=== PATIENT | male | born 1970 | race Two or more races ===

== ENCOUNTER 2024-09-30 12:38 | Emergency (ER) | payer BC, OTHER ==
[~2024-09-30] VITALS: Ht 190.5 cm; Wt 84.0 kg
--- NOTE | 2024-09-30 13:13 | ED.PDOC ---
SOB-HPI HPI Comments 53-year-old male with a history of quadriplegia brought in by caregiver for evaluation of shortness of breath and productive cough for the last 2 months, worse over the past 2 days. Patient's caregiver states he has been seen at urgent care multiple times and been prescribed multiple different antibiotics for respiratory infections, however the symptoms continued to progress. He denies fever, chest pain or edema. He states he quit smoking 2 months ago. He denies any current fever, nausea, vomiting or recent sick contacts. Chief Complaint: Shortness of Breath Time Seen by MD: 12:54 Reviewed notes: Nurses Notes, Medications, Allergies Information Source: Patient, Financial Quantitative Analyst Mode of Arrival: Wheelchair Severity: Moderate Timing: Months Duration: Since onset Context: At Rest PE Risk Factors: None History of: None Prehospital treatment: None Associated Signs and Symptoms: Cough If cough with SOB: Productive Past Medical History PAST MEDICAL HISTORY: Depression, GERD, High Lipids, HTN Past Medical History (Other): Quadriplagia 2 of the Acute Disseminated Encephalomyelitis, Spasticity right greater than left, Ataxic gait w/ scissoring, severe dysarthria, 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, Diverticulitis, DVT of Upper Limb, Exotropia Surgical History: Denies all surgeries Family History Family History: Reviewed,noncontributory to illness, Unknown Social History Smoker: Quit Less Than 1 Year, Cigarettes Alcohol: Denies ETOH Use Drugs: Denies Drug Use Lives In: Home All Other Systems: Reviewed and Negative (Comprehensive systems review obtained and negative except for what is stated in the HPI.) Physical Exam General Appearance: No Apparent Distress HEENT: Other (Moist mucous membranes) Neck: Full Range of Motion, Normal Inspection Respiratory: Decreased Breath Sounds, No Accessory Muscle Use, No Respiratory Distress, Rhonchi Cardiovascular: No Edema, No JVD, Regular Rate/Rhythm Breast Exam: Deferred Gastrointestinal: Non Tender, Soft Genitalia: Deferred Pelvic: Deferred Rectal: Deferred Extremities: Non-tender, No pedal edema Neurologic: Alert (Oriented x3), Normal Affect, Normal Mood, Other (Quadriplegia) Cerebellar Function: NOT DONE Reflexes: NOT DONE Skin: Dry, Normal Color, Warm Lymphatic: NOT DONE Was a procedure done? Was a procedure done?: No Differential Dx Differential Diagnosis: Asthma, Bronchitis, CHF, COPD, Hyperventilation, Myocardial infarction, Pneumonia, Pulmonary Embolism, URI X-Ray, Labs, Meds, VS Vital Signs Date Time Temp Pulse Resp B/P (MAP) Pulse Ox O2 Delivery O2 Flow Rate FiO2 09/30/24 17:14 95 16 94 Room Air 09/30/24 17:14 98.1 95 16 146/81 (102) 94 98.1 09/30/24 13:41 80 20 95 Room Air* 0 21 09/30/24 13:19 20 94 Room Air* 0 21 09/30/24 12:56 98.2 87 22 137/93 (108) 95 09/30/24 12:55 22 95 Room Air* 0 21 09/30/24 12:51 85 Lab Test 09/30/24 21:37 09/30/24 14:25 09/30/24 13:30 09/30/24 13:29 Range/Units Urine Color Yellow Yellow Urine Clarity Clear Clear Urine pH 5.5 5.0-9.0 Urine Specific [place] 1.032 1.001-1.035 Urine Protein Trace H Negative Urine Ketones Trace Negative Urine Blood Negative Negative /uL Urine Nitrite Negative Negative Urine Bilirubin Negative Negative Urine Urobilinogen Normal Negative mg/dL Urine Leukocyte Esterase Negative Negative /uL Urine RBC <1 0 - 3 /hpf Urine Microscopic WBC 2 0-3 /HPF Urine Squamous Epithelial Cells Few <5 /hpf Urine Bacteria None seen None Seen /hpf Urine Hyaline Casts Few 0 - 2 /lpf Urine Mucus Few None Seen Urine Glucose Normal Normal mg/dL Troponin I High Sensitivity < 3 L < 3 L </=54 ng/L Influenza Type A Antigen Negative Negative Influenza Type B Antigen Negative Negative SARS-CoV-2 Antigen (Rapid) Negative NEGATIVE White Blood Count 5.5 4.4-10.8 10^3/uL Red Blood Count 5.44 4.5-5.90 10^6/uL Hemoglobin 17.0 13.5-17.5 g/dL Hematocrit 49.5 41.0-53.0 % Mean Corpuscular Volume 90.9 80.0-100.0 fL Mean Corpuscular Hemoglobin 31.1 28.0-32.0 pg Mean Corpuscular Hemoglobin Concent 34.3 32.0-36.0 g/dL Red Cell Distribution Width 13.9 11.8-14.3 % Platelet Count 133 L 140-450 10^3/uL Mean Platelet Volume 9.5 6.9-10.8 fL Neutrophils (%) (Auto) 67.7 37.0-80.0 % Lymphocytes (%) (Auto) 22.2 10.0-50.0 % Monocytes (%) (Auto) 6.8 0.0-12.0 % Eosinophils (%) (Auto) 2.2 0.0-7.0 % Basophils (%) (Auto) 1.1 0.0-2.0 % Neutrophils # (Auto) 3.7 1.6-8.6 10 ^3/uL Lymphocytes # (Auto) 1.2 0.4-5.4 10 ^3/uL Monocytes # (Auto) 0.4 0-1.3 10 ^3/uL Eosinophils # (Auto) 0.1 0-0.8 10 ^3/uL Basophils # (Auto) 0.1 0-0.2 10 ^3/uL Nucleated Red Blood Cells 0.1 % Sodium Level 142 136-145 mmol/L Potassium Level 4.3 3.5-5.1 mmol/L Chloride Level 109 H 98-107 mmol/L Carbon Dioxide Level 25 20-31 mmol/L Anion Gap 8 5-15 Blood Urea Nitrogen 18 9-23 mg/dL Creatinine 0.99 0.700-1.30 mg/dL Glomerular Filtration Rate Calc 91 >90 mL/min BUN/Creatinine Ratio 18.2 10.0-20.0 Serum Glucose 92 74-106 mg/dL Lactic Acid Level 1.5 0.4-2.0 mmol/L Calcium Level 9.7 8.7-10.4 mg/dL B-Type Natriuretic Peptide 20.65 0-100 pg/mL Current Medications Medications (Trade) Dose Ordered Sig/Luis Route Start Time Stop Time Status Last Admin Albuterol (Ventolin Medneb) 5 mg ONCE ONCE NEB 09/30/24 13:15 09/30/24 13:16 DC 09/30/24 13:28 Ipratropium [place] (Atrovent Medneb) 0.5 mg ONCE ONCE NEB 09/30/24 13:15 09/30/24 13:16 DC 09/30/24 13:28 Methylprednisolone Sodium Succinate (Solu Medrol) 125 mg ONCE ONCE IV 09/30/24 13:15 09/30/24 13:16 DC 09/30/24 13:31 Doxycycline Hyclate 100 ml @ 50 mls/hr ONCE ONCE IV 09/30/24 19:30 09/30/24 21:29 DC 09/30/24 22:14 PROCEDURE(s): CXRP - CHEST PORTABLE REASON: sob cough congest ORDER NUMBER(s): [id number], ACCESSION NUMBER(s): [id number] INDICATION: sob cough congest TECHNIQUE: Frontal view of the chest. COMPARISON: None FINDINGS: The heart and mediastinal contours are grossly unremarkable. There is no evidence of pleural disease. The lungs are clear. The bony structures of the chest are intact without fracture. IMPRESSION: 1. No evidence of acute disease. X-Ray, Labs, Meds, VS Comment 53-year-old male with a history of quadriplegia brought in by caregiver for evaluation of shortness of breath and productive cough for the last 2 months, worse over the past 2 days. Symptoms are persistent despite multiple rounds of oral antibiotics. Vitals remarkable for respiratory rate 22 Exam remarkable for rhonchi and diminished breath sounds Rhythm strip independently interpreted by me: Sinus rhythm, rate 85, no ectopy. Chest x-ray IMPRESSION: 1. No evidence of acute disease. CBC, metabolic panel, BNP, serial troponins, lactic, COVID and influenza unremarkable Patient treated with the following in the ED: Albuterol 5 mg/Atrovent 0.5 mg nebulized, Solu-Medrol 125 mg IV doxycycline 100 mg IV On re-evaluation, patient states symptoms have somewhat improved. Oxygen saturation was normal on room air. Other vitals were stable. Plan was to admit the patient for IV antibiotics and pulmonary consultation, however case was discussed with PEPE Morfin, who did not feel the patient required hospitalization and will arrange for the patient to have a home health visit tomorrow and then close outpatient follow-up at [facility] urgent care. Rx doxycycline, albuterol, prednisone Time of 1ST Reevaluation: 13:24 Reevaluation 1ST: Unchanged Time of 2ND Reevaluation: 20:42 Reevaluation 2ND: Improved Patient Education/Counseling: Diagnosis, Treatment, Prognosis Family Education/Counseling: Diagnosis, Treatment, Prognosis Departure 1 Departure Time of Disposition: 19:23 Impression: Primary Impression: Bronchospasm with bronchitis, acute Disposition: HOME / SELF CARE / HOMELESS Condition: Stable Additional Instructions: Your blood tests and chest x-ray were unremarkable. I have prescribed antibiotics for a possible respiratory infection, oral steroids to decrease lung inflammation, and an inhaler to use as needed for difficulty breathing.. You will receive a home health visit tomorrow, and you will be contacted for close follow-up at [facility] urgent care. Return to ER for persistent or worsening symptoms. e-Prescriptions Albuterol Sulfate (Albuterol Sulfate Hfa) 108 Mcg/Act Aer 2 PUFF IN Q6HP PRN, #1 AER prn difficulty breathing Prov: GRETCHEN LEON MD 09/30/24 Prednisone (Prednisone) 20 Mg Tab 40 MG PO DAILY for 4 Days, #8 TAB Prov: GRETCHEN LEON MD 09/30/24 Doxycycline (Monohydrate) (Doxycycline) 100 Mg Tab 100 MG PO BID for 10 Days, #20 TAB Prov: GRETCHEN LEON MD 09/30/24 Discharged With: Deputy Sheriff Building Guard Critical Care Note Critical Care Time?: No Stability Stability form required: No Heart Score Heart Score: Heart Score Response (Comments) Value History N/A 0 EKG N/A 0 Age N/A 0 Risk Factors N/A 0 Troponin N/A 0 Total 0 I personally scribed for GRETCHEN LEON MD ([email or web address]) on 09/30/24 at 13:21. Electronically submitted by Mike Gomez ([email or web address]). GRETCHEN LEON MD Sep 30, 2024 13:13
[2024-09-30] MEDS: ALBUTEROL SULF 2.5 MG/0.5ML(0.5%) NEB SOLN NEB ONE (13:28)
[2024-09-30] MEDS: IPRATROPIUM BROM 0.5 MG/2.5ML INH SOL NEB ONE (13:28)
[2024-09-30] MEDS: methylPREDNISolone SOD SUCC 125 MG/2 ML VL IV ONE (13:31)
--- NOTE | 2024-09-30 13:33 | DVH ---
INDICATION: sob cough congest TECHNIQUE: Frontal view of the chest. COMPARISON: None FINDINGS: The heart and mediastinal contours are grossly unremarkable. There is no evidence of pleural diseas e. The lungs are clear. The bony structures of the chest are intact without fracture. IMPRESSION: 1. No evidence of acute disease.
[2024-09-30 13:41] VITALS: PULSE 80; RESP 20; O2SAT 95
[2024-09-30 13:47] LABS: Basophils # (auto) 0.1 10 ^3/uL (0-0.2); Basophils % (auto) 1.1 % (0.0-2.0); Eosinophils # (auto) 0.1 10 ^3/uL (0-0.8); Eosinophils % (auto) 2.2 % (0.0-7.0); Hematocrit 49.5 % (41.0-53.0); Lymphocytes # (auto) 1.2 10 ^3/uL (0.4-5.4); Lymphocytes % (auto) 22.2 % (10.0-50.0); Mean Corpuscular Hemoglobin 31.1 pg (28.0-32.0); Mean Corpuscular Hgb Conc. 34.3 g/dL (32.0-36.0); Mean Corpuscular Volume 90.9 fL (80.0-100.0); Monocytes # (auto) 0.4 10 ^3/uL (0-1.3); Monocytes % (auto) 6.8 % (0.0-12.0); Neutrophils # (auto) 3.7 10 ^3/uL (1.6-8.6); Neutrophils % (auto) 67.7 % (37.0-80.0); Nucleated Red Blood Cells % 0.1 %; Platelet Count (auto) 133 10^3/uL (140-450); Red Blood Cells 5.44 10^6/uL (4.5-5.90); Red Cell Distribution Width 13.9 % (11.8-14.3); White Blood Cell 5.5 10^3/uL (4.4-10.8)
[2024-09-30 14:06] LABS: Anion Gap 8 (5-15); BUN/Creatinine Ratio 18.2 (10.0-20.0); Blood Urea Nitrogen 18 mg/dL (9-23); Calcium 9.7 mg/dL (8.7-10.4); Carbon Dioxide 25 mmol/L (20-31); Chloride 109 mmol/L (98-107); Glucose 92 mg/dL (74-106); Potassium 4.3 mmol/L (3.5-5.1); Sodium 142 mmol/L (136-145)
[2024-09-30 14:30] LABS: COVID19 ANTIGEN SOFIA FIA NEGATIVE (NEGATIVE)
[2024-09-30 14:31] LABS: Rapid Influenza A Negative (Negative); Rapid Influenza B Negative (Negative)
[2024-09-30 17:14] VITALS: BP 146/81; PULSE 95; RESP 16; TEMP 98.1; O2SAT 94
[2024-09-30] MEDS ORDERED: cefTRIAXone 1GM/50ML D5W 50 ML IV ONE (19:30)
[2024-09-30] MEDS ORDERED: AZITHROMYCIN 500MG/ 250ML 250 ML IV ONE (19:30)
--- NOTE | 2024-09-30 20:41 | DVHINCON2 ---
EDIE COSTA NP 09/30/242040: Date of service: Sep 30, [address] Bowling Reason for Consultation Medical management History of Present Illness 53-year-old male with past medical history of quadriplegia presents with complaints of cough congestion and shortness of breath. Patient is seen in the ER internal lobby. Information in this HPI is acquired with the assistance of the patient's caregiver. Patient is complaining of cough and congestion with shortness of breath x1 month. Patient was recently seen at urgent care and treated with amoxicillin. Which the patient endorses did not make him feel better. While in the emergency department patient's oxygen saturation has remained stable 96%. Lab work was unremarkable. CXR had no acute findings. Patient denies Fevers, chills, chest pain, nausea, vomiting, leg swelling. At the time of my evaluation patient endorses feeling much better and agrees with being discharged home. Social History Denies EtOH, illicit drug use, former smoker Home Meds Active Scripts Albuterol Sulfate (Albuterol Sulfate Hfa) 108 Mcg/Act Aer, 2 PUFF IN Q6HP PRN, #1 AER prn difficulty breathing Prov:GRETCHEN LEON MD 09/30/24 Prednisone (Prednisone) 20 Mg Tab, 40 MG PO DAILY for 4 Days, #8 TAB Prov:GRETCHEN LEON MD 09/30/24 Doxycycline (Monohydrate) (Doxycycline) 100 Mg Tab, 100 MG PO BID for 10 Days, #20 TAB Prov:GRETCHEN LEON MD 09/30/24 Review of Systems Ten systems reviewed and negative except as per HPI Vital Signs Vital Signs Date Time Temp Pulse Resp B/P (MAP) Pulse Ox O2 Delivery O2 Flow Rate FiO2 09/30/24 17:14 95 16 94 Room Air 09/30/24 17:14 98.1 146/81 (102) 98.1 09/30/24 13:41 0 21 Physical Exam GENERAL: Patient appearing stated age, in no acute distress. HEENT: Pupils equal and reactive to light and accommodation. Extraocular mus cles intact. Mucous membranes moist. Conjunctivae pink. Anicteric sclerae. LUNGS: Bilateral air entry. No wheezes, rhonchi or rales. HEART: Regular rate and rhythm. Normal S1 and S2. ABDOMEN: BS normoactive, soft, nontender, and nondistended. No CVA tenderness. EXTREMITIES: No clubbing, cyanosis, edema. No calf tenderness. Pedal pulses 2+. NEUROLOGICAL: The patient is alert and oriented times 3. Quadriplegic at baseline. Labs/Diagnostic Data Labs Test 09/30/24 14:25 09/30/24 13:30 09/30/24 13:29 Range/Units Troponin I High Sensitivity < 3 L </=54 ng/L Influenza Type A Antigen Negative Negative Influenza Type B Antigen Negative Negative SARS-CoV-2 Antigen (Rapid) Negative NEGATIVE White Blood Count 5.5 4.4-10.8 10^3/uL Red Blood Count 5.44 4.5-5.90 10^6/uL Hemoglobin 17.0 13.5-17.5 g/dL Hematocrit 49.5 41.0-53.0 % Mean Corpuscular Volume 90.9 80.0-100.0 fL Mean Corpuscular Hemoglobin 31.1 28.0-32.0 pg Mean Corpuscular Hemoglobin Concent 34.3 32.0-36.0 g/dL Red Cell Distribution Width 13.9 11.8-14.3 % Platelet Count 133 L 140-450 10^3/uL Mean Platelet Volume 9.5 6.9-10.8 fL Neutrophils (%) (Auto) 67.7 37.0-80.0 % Lymphocytes (%) (Auto) 22.2 10.0-50.0 % Monocytes (%) (Auto) 6.8 0.0-12.0 % Eosinophils (%) (Auto) 2.2 0.0-7.0 % Basophils (%) (Auto) 1.1 0.0-2.0 % Neutrophils # (Auto) 3.7 1.6-8.6 10 ^3/uL Lymphocytes # (Auto) 1.2 0.4-5.4 10 ^3/uL Monocytes # (Auto) 0.4 0-1.3 10 ^3/uL Eosinophils # (Auto) 0.1 0-0.8 10 ^3/uL Basophils # (Auto) 0.1 0-0.2 10 ^3/uL Nucleated Red Blood Cells 0.1 % Sodium Level 142 136-145 mmol/L Potassium Level 4.3 3.5-5.1 mmol/L Chloride Level 109 H 98-107 mmol/L Carbon Dioxide Level 25 20-31 mmol/L Anion Gap 8 5-15 Blood Urea Nitrogen 18 9-23 mg/dL Creatinine 0.99 0.700-1.30 mg/dL Glomerular Filtration Rate Calc 91 >90 mL/min BUN/Creatinine Ratio 18.2 10.0-20.0 Serum Glucose 92 74-106 mg/dL Lactic Acid Level 1.5 0.4-2.0 mmol/L Calcium Level 9.7 8.7-10.4 mg/dL B-Type Natriuretic Peptide 20.65 0-100 pg/mL Assessment Bronchitis Evaluation for COPD Patient was seen and evaluated [facility] internal lobby. Vital sign reviewed. Patient has remained hemodynamically stable with stable oxygen saturation at 95% throughout his visit. On physical examination patient is without respiratory distress. There is no audible wheezing or [place]. Labs reviewed. CBC unremarkable. CMP unremarkable. Troponin negative x2 without complaints of chest pain. CXR: no acute cardio pulmonary disease. At this time patient endorses breathing has improved and is feeling much better. Plan/Recommendation Internal medicine was consulted by [facility] emergency department provider for continued outpatient follow up. At this time patient is being discharged from the emergency department with a prescription for doxycycline, rescue inhaler albuterol, and oral prednisone. O case management has been consulted to establish home safety evaluation for the patient. Will also have patient follow up at [facility] urgent care for continued monitoring. Will also have patient follow up with pulmonology consult on outpatient basis. Patient and caregiver were provided with strict ER precaution included but not limited to or shortness of breath, fevers, chills, chest pain, dizziness, nausea, vomiting. If any of these are to occur please return to the nearest emergency department for further evaluation and treatment. Plan of care was discussed in detail with the patient and the patient caregiver. Both understand and agree with the current plan of care. Plan discussed with: Patient, Other (Caregiver) MAXX MATTHEW MD 10/01/24 1529: Home Meds Active Scripts Albuterol Sulfate (Albuterol Sulfate Hfa) 108 Mcg/Act Aer, 2 PUFF IN Q6HP PRN, #1 AER prn difficulty breathing Prov:GRETCHEN LEON MD 09/30/24 Prednisone (Prednisone) 20 Mg Tab, 40 MG PO DAILY for 4 Days, #8 TAB Prov:GRETCHEN LEON MD 09/30/24 Doxycycline (Monohydrate) (Doxycycline) 100 Mg Tab, 100 MG PO BID for 10 Days, #20 TAB Prov:GRETCHEN LEON MD 09/30/24 Assessment Patient's chart is reviewed and discussed with the nurse practitioner. Patient seen and evaluated by nurse practitioner. I agree with his evaluation, documentation, assessment and care plan as outlined. Plan discussed with: Other EDIE COSTA NP Sep 30, 2024 20:41 MAXX MATTHEW MD Oct 01, 2024 15:29
[2024-09-30] MEDS ORDERED: DOXY-346 PO (20:46)
[2024-09-30] MEDS ORDERED: ALBU108A5 IN (20:46)
[2024-09-30] MEDS ORDERED: PRED20TA2 PO (20:46)
[2024-09-30] MEDS: DOXYCYCLINE 100MG/100ML 100 ML IV ONE (22:14)
[2024-09-30 23:17] LABS: Urine Bacteria None Seen /hpf (None Seen)
[2024-09-30 23:28] LABS: Urine Blood Negative /uL (Negative); Urine Clarity Clear (Clear); Urine Color Yellow (Yellow); Urine Hyaline Cast FEW /lpf (0 - 2); Urine Mucus FEW (None Seen); Urine Protein, UAD TRACE (Negative); Urine Specific Gravity 1.032 (1.001-1.035); Urine Squamous Epithelial Cell FEW /hpf (<5); Urine Urobilinogen Normal (Negative); Urine WBC 2 /HPF (0-3); Urine pH 5.5 (5.0-9.0)
--- NOTE | 2024-10-02 04:34 | ECG ---
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
== END 2024-10-01 00:33 | disposition home or self-care (01) ==
LOC: ER 12:41
DX: J20.9 Acute bronchitis, unspecified (principal); I10 Essential (primary) hypertension; K21.9 Gastro-esophageal reflux disease without esophagitis; E78.5 Hyperlipidemia, unspecified; Z20.822 Contact with and (suspected) exposure to COVID-19
CPT/HCPCS: 36415; 71045; 80048; 81001; 83605; 83880; 84484; 85025; 87040; 87426; 87804; 93005; 94640; 96365; 96366; 96375; 99285; J2919; J3490